=== PATIENT | male | born 1965 | race Caucasian/White ===

== ENCOUNTER 2017-12-25 10:44 | Emergency (ER) | payer BC ==
[2017-12-25 11:40] VITALS: BP 121/75
--- NOTE | 2017-12-25 13:29 | EDM.PDOC ---
Scribed by Fina Staley 12/25/17 [id number] for Robin Mcbride MD ED HPI GENERAL MEDICAL PROBLEM - General Chief Complaint: Upper Extremity Injury/Pain Stated Complaint: RT WRIST Time Seen by Provider: 12/25/17 13:02 Source of Information: Reports: Patient, RN, RN Notes Reviewed History Limitations: Reports: No Limitations - History of Present Illness INITIAL COMMENTS - FREE TEXT/NARRATIVE: Patient presents to ER with complaint of right wrist pain. Patient was using a drill last night. About an hour and half after using the drill he noticed pain and more difficulty moving it. No other injury. Onset Date: 12/24/17 Duration: Getting Worse Location: Reports: Upper Extremity, Right Quality: Reports: Ache Severity: Severe Improves with: Reports: None Worsens with: Reports: None Associated Symptoms: Reports: No Other Symptoms Right Wrist Pain Score (Numeric/FACES): 8 - Related Data Allergies Allergy/AdvReac Type Severity Reaction Status Date / Time No Known Allergies Allergy Verified 05/03/16 10:37 Home Meds: Home Meds Ibuprofen 400 mg PO Q8H PRN 12/25/17 [History] Past Medical History Cardiovascular History: Reports: Other (See Below) Musculoskeletal History: Reports: Back Pain, Chronic, Other (See Below) Other Musculoskeletal History: back surgery x2, cyst removed from left cheek Social & Family History - Family History Family Medical History: Noncontributory - Tobacco Use Smoking Status *Q: Current Every Day Smoker Years of Tobacco use: 40 Packs/Tins Daily: 1 - Caffeine Use Caffeine Use: Reports: None - Alcohol Use Days Per Week of Alcohol Use: 4 Number of Drinks Per Day: 3 Total Drinks Per Week: 12 - Recreational Drug Use Recreational Drug Use: No Review of Systems - Review of Systems Review Of Systems: ROS reveals no pertinent complaints other than HPI. ED EXAM, GENERAL - Physical Exam Exam: See Below Exam Limited By: No Limitations General Appearance: Alert, WD/WN, No Apparent Distress Head: Atraumatic Respiratory/Chest: No Respiratory Distress Cardiovascular: Normal Peripheral Pulses Extremities: Normal Capillary Refill, Limited Range of Motion (Rt wrist), Other (Rt wrist tender to palp. with no visible swelling, bruising, or deformity; skin is intact.). No: Joint Swelling, Redness Neurological: Alert, Oriented, Normal Cognition, Normal Gait, No Motor/Sensory Deficits ED TRAUMA EXTREMITY PROCEDURES - Splinting Right Upper Extremity Splint Site: Rt wrist Pre-Procedure NV Status: Normal Post-Procedure NV Status: Normal Splint Material: Metal Splint Design: Volar Applied & Form Fitted By: Nurse Provider Post-Splint Application NV Check: NV Status Normal, Good Position Complications: No Course - Vital Signs Last Recorded V/S: Last Vital Signs Temp 36.9 C 12/25/17 11:28 Pulse 71 12/25/17 11:28 Resp 18 12/25/17 11:28 BP 121/75 12/25/17 11:28 Pulse Ox 98 12/25/17 11:28 - Radiology Interpretation Free Text/Narrative:: X-rays right wrist: No fracture. See rad report. Departure - Departure Time of Disposition: 13:25 Disposition: Home, Self-Care 01 Condition: Good Clinical Impression: Sprain of right wrist Qualifiers: Encounter type: initial encounter Qualified Code(s): S63.501A - Unspecified sprain of right wrist, initial encounter Sprain of carpal joint of right wrist Qualifiers: Encounter type: initial encounter Qualified Code(s): S63.511A - Sprain of carpal joint of right wrist, initial encounter - Discharge Information Forms: ED Department Discharge Additional Instructions: Use Ibuprofen 600mg by mouth every 6 hours as needed for pain. Take with food. Do not exceed 2400mg in 24 hours. Wear right wrist splint for 5 to 7 days. Follow up in clinic for recheck and referral to orthopedic surgeon if not improving as expected. I have read and agree with the documentation that has been completed regarding this visit. By signing this record, I attest that the documentation was completed in my physical presence and is an accurate record of the encounter.
== END 2017-12-25 13:32 | disposition home or self-care (01) ==
LOC: DL.ED 10:44
DX: S63.511A Sprain of carpal joint of right wrist, initial encounter (principal); F17.210 Nicotine dependence, cigarettes, uncomplicated; X50.1XXA Overexertion from prolonged static or awkward postures, initial encounter
CPT/HCPCS: 73110-RT; 99283